=== PATIENT | female | born 1950 | race American Indian/Alaskan Native ===

== ENCOUNTER 2017-02-11 11:43 | Emergency (ER) | payer MEDICARE, MEDICAID ==
[2017-02-11] MEDS ORDERED: NORMODYNE IV ONE ×3 (12:06→12:55)
[2017-02-11] MEDS ORDERED: DECADRON IV ONE (12:54)
[2017-02-11] MEDS ORDERED: KEPPRA 1,000 MG/NS 0.75% 100ML 1,000 MG/100 ML BAG IV ONE ×2 (13:16→13:19)
[2017-02-11] MEDS ORDERED: ZOFRAN IV ONE (13:16)
[2017-02-11 13:17] LABS: BUN/Creatinine Ratio 16; Basophils % (Auto) 0.7 % (0.0-1.8); Blood Urea Nitrogen 11 mg/dL (7-17); Calcium 8.9 mg/dL (8.4-10.2); Carbon Dioxide 26 mmol/L (22-30); Eosinophils % (Auto) 0.3 % (0.0-4.3); Glucose 193 mg/dL (65-100); Hematocrit 45.3 % (30.3-42.9); Hemoglobin 14.9 gm/dl (10.1-14.3); Mean Corpuscular HGB Conc 33 % (30-34); Mean Corpuscular Hemoglobin 29 pg (28-32); Mean Corpuscular Volume 88 fl (79-97); Platelet Count 280 K/mm3 (140-440); Red Blood Count 5.13 M/mm3 (3.65-5.03); Red Cell Distribution Width 14.6 % (13.2-15.2); White Blood Count 13.7 K/mm3 (4.5-11.0)
[2017-02-11 13:18] LABS: Anion Gap 19 mmol/L; Chloride 97.4 mmol/L (98-107); INR 0.92 (0.87-1.13); Partial Thromboplastin Time 30.4 Sec. (24.2-36.6); Potassium 3.8 mmol/L (3.6-5.0); Sodium 139 mmol/L (137-145)
[2017-02-11] MEDS ORDERED: ZOFRAN ONE (13:19)
--- NOTE | 2017-02-11 13:48 | Cat Scan Report ---
CT HEAD WITHOUT CONTRAST: HISTORY: Stroke. TECHNIQUE: Sequential 2.5mm CT images. COMPARISON: none. FINDINGS: There is a large area of vasogenic edema throughout the right occipital lobe. A 3.4 x 2.2 cm hyperdense mass is suspected within the right occipital lobe. This probably represents a solitary metastatic lesion although a primary neoplasm is not excluded. Further evaluation with MRI with contrast is recommended. The remaining brain parenchyma is within normal limits. There is no evidence for hemorrhage, large area of acute ischemia or extra axial fluid collection. Ventricular size is within normal limits. The calvarium is intact. The sinuses and mastoid air cells are well-aerated. 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 Further evaluation with MRI with contrast is recommended.
--- NOTE | 2017-02-11 13:49 | XRay Report ---
AP CHEST: HISTORY: Hypertension No comparison. There is mild cardiomegaly and pulmonary venous congestion. No evidence for consolidation, pleural effusion or pneumothorax. IMPRESSION: Cardiomegaly and pulmonary venous congestion. No CHF.
--- NOTE | 2017-02-11 14:46 | Emergency Department Report ---
ED General Adult HPI - General Chief complaint: Altered Mental Status Stated complaint: POSS STROKE Time Seen by Provider: 02/11/17 12:17 Source: EMS Mode of arrival: Stretcher Limitations: No Limitations - History of Present Illness Initial comments: According to the daughter she was fully ambulatory in her usual state at about 5 :30 in the morning when she walked her to the door and she went to work. Her granddaughter found her at 9 AM to the apparently altered and unable to speak. She was brought to this facility for evaluation of a possible stroke syndrome. The family initially states that the patient went to [place] and had a CT one month ago for a headache. Later on another family member seemed to be identifying that it was the [facility] on [facility] that performed the CT examination of the patient's head. According to the family, she never got a report of this exam. They were unclear as to whether she was seen at the clinic or a primary doctor and sent for an outpatient study. They are denying now an emergency department visit. In a case the family is unaware of what the prior CT might have shown. -: hour(s) - Related Data Allergies Allergy/AdvReac Type Severity Reaction Status Date / Time No Known Allergies Allergy Unverified 02/11/17 11:51 ED Review of Systems ROS: Stated complaint: POSS STROKE Other details as noted in HPI Comment: Unobtainable due to pts medical conditions ED Past Medical Hx - Past Medical History Previous Medical History?: Yes Hx Hypertension: Yes Additional medical history: Neurofibromatosis. No history of tuberous sclerosis or STAFF AUDITOR involvement. - Social History Smoking Status: Smoker, Current Status Unknown Substance Use Type: None ED Physical Exam - General Limitations: Altered Mental Status General appearance: lethargic - Head Head exam: Present: atraumatic, normocephalic - Eye Eye exam: Present: PERRL, EOMI. Absent: scleral icterus - ENT ENT exam: Present: mucous membranes moist - Neck Neck exam: Present: normal inspection. Absent: tenderness, meningismus - Respiratory Respiratory exam: Present: normal lung sounds bilaterally. Absent: respiratory distress - Cardiovascular Cardiovascular Exam: Present: regular rate, normal rhythm. Absent: systolic murmur, diastolic murmur, rubs, gallop - GI/Abdominal GI/Abdominal exam: Present: soft, normal bowel sounds. Absent: distended, tenderness, guarding, rebound, rigid - Extremities Exam Extremities exam: Present: normal inspection - Back Exam Back exam: Present: normal inspection - Neurological Exam Neurological exam: Present: motor sensory deficit (moderate to severe left hemiparesthesias and sensory deficit likely), other (attention left side). Absent: CN II-XII intact (moderate left facial paresis) - Skin Skin exam: Present: warm, dry, intact, normal color. Absent: rash ED Course Vital Signs 02/11/17 02/11/17 02/11/17 11:44 11:52 12:00 Temperature 97.5 F L Pulse Rate 110 H 108 H 110 H Respiratory 12 10 L Rate Blood Pressure 200/100 200/119 O2 Sat by Pulse 95 96 Oximetry 02/11/17 02/11/17 02/11/17 12:11 12:20 12:46 Temperature Pulse Rate 105 H 91 H 97 H Respiratory 11 L 15 Rate Blood Pressure 200/119 200/119 196/126 O2 Sat by Pulse 97 98 Oximetry 02/11/17 02/11/17 02/11/17 13:00 13:02 13:20 Temperature Pulse Rate 88 95 H Respiratory 14 Rate Blood Pressure 163/86 187/139 167/114 O2 Sat by Pulse 98 99 Oximetry 02/11/17 13:40 Temperature Pulse Rate 87 Respiratory 15 Rate Blood Pressure 167/113 O2 Sat by Pulse 99 Oximetry - Reevaluation(s) Reevaluation #1: I went down to the CT department just shortly after the patient had her imaging study. 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 I discussed this with Dr. Naidu later. He confirmed a 2 x 3 cm right occipital mass. It looks quite complex to me as well. There was ventricular effacement in the occipital lobe as well as sulcal effacement in general. He did not report hydrocephalus or midline shift however. The patient was given a prophylactic dose of Keppra as well as 8 mg of Decadron IV. I spoke to Dr. Nguyen the neurosurgeon at [facility]. She was very kind to accept this patient for further care and treatment. The patient has remained in stable condition without any signs of neurological progression nor airway issues. She will be sent via ground ambulance to the intensive care unit. Additionally her blood pressure was quite elevated but responded it amply well to 2 10 mg doses of labetalol. 02/11/17 14:46 ED Medical Decision Making - Lab Data Result diagrams: 02/11/17 12:14 02/11/17 12:14 Laboratory Results - last 24 hr 02/11/17 02/11/17 02/11/17 12:02 12:14 12:14 WBC 13.7 H RBC 5.13 H Hgb 14.9 H Hct 45.3 H MCV 88 MCH 29 MCHC 33 RDW 14.6 Plt Count 280 Lymph % (Auto) 10.9 L Howard % (Auto) 3.3 Eos % (Auto) 0.3 Baso % (Auto) 0.7 Lymph # 1.5 Howard # 0.5 Eos # 0.0 Baso # 0.1 Seg Neutrophils % 84.8 H Seg Neutrophils # 11.6 H PT 12.8 INR 0.92 APTT 30.4 Thrombin Time Sodium Potassium Chloride Carbon Dioxide Anion Gap BUN Creatinine Estimated GFR BUN/Creatinine Ratio Glucose POC Glucose 197 H Calcium Troponin T 02/11/17 02/11/17 12:14 12:14 WBC RBC Hgb Hct MCV MCH MCHC RDW Plt Count Lymph % (Auto) Howard % (Auto) Eos % (Auto) Baso % (Auto) Lymph # Howard # Eos # Baso # Seg Neutrophils % Seg Neutrophils # PT INR APTT Thrombin Time 18.1 Sodium 139 Potassium 3.8 Chloride 97.4 L Carbon Dioxide 26 Anion Gap 19 BUN 11 Creatinine 0.7 Estimated GFR > 60 BUN/Creatinine Ratio 16 Glucose 193 H POC Glucose Calcium 8.9 Troponin T < 0.010 - EKG Data EKG shows normal: sinus rhythm - EKG Data Interpretation: other (left axis deviation, PVCs, poor R-wave progression, no ischemic changes) - Radiology Data Radiology results: report reviewed interpreted by me: See CT report description above. Chest x-ray showed cardiomegaly without decompensation. Critical Care Time: Yes Critical care time in (mins) excluding proc time.: 60 Critical care attestation.: If time is entered above; I have spent that time in minutes in the direct care of this critically ill patient, excluding procedure time. ED Disposition Clinical Impression: Occipital mass, Left hemiparesis, Vasogenic brain edema, Uncontrolled hypertension, Neurofibromatosis Disposition: [id number]/TX-[id number] ANOTHER TYPE HLTHCARE Is pt being admited?: No Does the pt Need Aspirin: No Condition: Stable Instructions: Hypertension (ED) Referrals: PRIMARY CARE, [Primary Care Provider] - 3-5 Days Time of Disposition: 14:50
[2017-02-11 16:37] VITALS: BP 151/102
[2017-02-11 21:42] LABS: Alanine Aminotransferase 14 units/L (7-56); Albumin 3.9 g/dL (3.9-5); Albumin/Globulin Ratio 0.9 %; Alkaline Phosphatase 95 units/L (35-129); Total Protein 8.4 g/dL (6.3-8.2)
[2017-02-11 21:43] LABS: Bilirubin,Direct < 0.2 mg/dL (0-0.2); Bilirubin,Indirect 0.3 mg/dL
== END 2017-02-11 16:37 | disposition other institution (70) ==
LOC: ED 11:43
DX: G93.6 Cerebral edema (principal); G81.94 Hemiplegia, unspecified affecting left nondominant side; I10 Essential (primary) hypertension; Q85.00 Neurofibromatosis, unspecified
CPT/HCPCS: 36415; 70450; 71010; 80048; 80074; 82962; 83880; 84484; 85025; 85610; 85670; 85730; 93005; 93010; 96365; 96375; 96376; 99291; J1100; J1953; J2405